=== PATIENT | male | born 1980 | race Two or more races ===

== ENCOUNTER 2023-03-13 03:38 | Emergency (ER) | payer MEDICAID, OTHER ==
[2023-03-13] MEDS ORDERED: Sodium Chloride 0.9% 1,000 ML IV ONE (04:13)
[2023-03-13] MEDS ORDERED: Sodium Chloride 0.9% 1,000 ML IV SCH (04:15)
[2023-03-13 05:10] LABS: HEMOGLOBIN A1C 11.5 %
[2023-03-13] MEDS ORDERED: Labetalol 100 MG/20 ML MDV IVPUSH ONE (05:36)
[2023-03-13] MEDS ORDERED: metFORMIN 500 MG Tab PO ONE (06:03)
[2023-03-13] MEDS ORDERED: Lisinopril 10 MG Tab PO ONE (06:04)
== END 2023-03-13 07:28 | disposition home or self-care (01) ==
LOC: JD.ED 03:38
DX: E11.65 Type 2 diabetes mellitus with hyperglycemia (principal); I10 Essential (primary) hypertension; Z79.84 Long term (current) use of oral hypoglycemic drugs; Z79.899 Other long term (current) drug therapy
CPT/HCPCS: 36415; 36600; 80053; 81001; 82009; 82803; 82947; 83036; 83735; 83930; 85025; 85610; 86341; 96361; 96374; 99284; A9270; J3490; J7030

== ENCOUNTER 2023-08-20 14:13 | Emergency (ER) | payer MEDICAID | END 2023-08-20 15:33 | disposition home or self-care (01) | LOC: JD.ED 14:13 | DX: U07.1 COVID-19 (principal); I10 Essential (primary) hypertension; J45.909 Unspecified asthma, uncomplicated; E11.9 Type 2 diabetes mellitus without complications; Z86.16 Personal history of COVID-19; Z79.84 Long term (current) use of oral hypoglycemic drugs | CPT/HCPCS: 99283 ==

== ENCOUNTER 2023-08-24 17:04 | Inpatient (IN) | payer MEDICAID ==
[2023-08-24] MEDS ORDERED: Sodium Chloride 0.9% 10 ML Syringe FLUSH PRN ×2 (17:27→19:18)
[2023-08-24] MEDS ORDERED: cefTRIAXone 2 GM in Sodium Chloride 0.9% 100 ML IV ONE (17:28)
[2023-08-24 17:55] LABS: BASOPHILS PERCENT AUTO 0.3 % (0.0-1.0); EOSINOPHILS PERCENT AUTO 0.1 % (0.0-6.0); IMMATURE GRAN ABSOLUTE AUTO 0.12 K/mm3 (0.00-0.05); IMMATURE GRAN PERCENT AUTO 0.8 % (0.0-0.4); LYMPHOCYTES ABSOLUTE AUTO 1.2 K/mm3 (1.0-4.8); LYMPHOCYTES PERCENT AUTO 8.5 % (24.0-44.0); MEAN CORPUSCULAR HEMOGLOBIN 23.1 pg (28.0-32.0); MEAN CORPUSCULAR HGB CONC 32.5 g/dl (32.0-36.0); MEAN CORPUSCULAR VOLUME 71.2 fl (83.0-99.0); MEAN PLATELET VOLUME 9.2 fl (9.4-12.4); MONOCYTES ABSOLUTE AUTO 1.1 K/mm3 (0.0-0.8); MONOCYTES PERCENT AUTO 7.3 % (0.0-8.0); NEUTROPHILS ABSOLUTE AUTO 11.9 K/mm3 (1.8-7.7); PLATELET COUNT,PLT 320 K/mm3 (150-400); RED BLOOD CELL COUNT 5.62 M/mm3 (4.52-5.90); WHITE BLOOD CELL COUNT,WBC 14.29 K/mm3 (3.9-11.3)
[2023-08-24 18:20] LABS: A/G RATIO 0.7 (1-2); ALBUMIN 3.2 g/dl (3.4-5.0); ANION GAP 20.8 (5-15); BILIRUBIN TOTAL 0.6 mg/dL (0.2-1.0); BUN/CREATININE RATIO 21.3 (14-18); CALCIUM 9.3 mg/dL (8.5-10.1); CREATININE 0.8 mg/dL (0.7-1.3); EST CRCL DRUG DOSING (CG) 112.81 mL/min; POTASSIUM,K 3.8 mEq/L (3.5-5.1); PROTEIN TOTAL,TP 8.1 g/dl (6.4-8.2)
[2023-08-24] MEDS ORDERED: Piperacillin/Tazobactam 4.5 GM in Sodium Chloride 0.9% 100 ML IV ONE (18:36)
[2023-08-24] MEDS ORDERED: Ondansetron 4 MG/2 ML SDV IV PRN (19:18)
[2023-08-24] MEDS ORDERED: Docusate Sodium 100 MG Cap PO PRN (19:18)
[2023-08-24] MEDS ORDERED: Ondansetron 4 MG Tab.DIS PO PRN (19:18)
[2023-08-24] MEDS ORDERED: Acetaminophen 325 MG Tab PO PRN (19:18)
[2023-08-24] MEDS ORDERED: Piperacillin/Tazobactam 4.5 GM in Sodium Chloride 0.9% 100 ML IV SCH (19:30)
[2023-08-24] MEDS ORDERED: VANCOmycin 1.75 GM/350 ML 1.75 GM in Premix Bag 1 BAG IV ONE (20:00)
[2023-08-24 20:08] LABS: HEMOGLOBIN A1C 13.2 %
[2023-08-24] MEDS: Insulin Lispro 100 Unit/ML 3 ML KwikPen SUBCUT SCH (22:35)
[2023-08-25] MEDS: Piperacillin/Tazobactam 4.5 GM in Sodium Chloride 0.9% 100 ML IV SCH ×3 (00:15→18:37)
[2023-08-25 05:35] LABS: BASOPHILS PERCENT AUTO 0.3 % (0.0-1.0); EOSINOPHILS ABSOLUTE AUTO 0.1 K/mm3 (0.0-0.4); EOSINOPHILS PERCENT AUTO 1.1 % (0.0-6.0); HEMATOCRIT 35.6 % (42.0-52.0); HEMOGLOBIN 11.7 gm/dl (14.0-18.0); IMMATURE GRAN PERCENT AUTO 0.8 % (0.0-0.4); LYMPHOCYTES ABSOLUTE AUTO 2.1 K/mm3 (1.0-4.8); MEAN CORPUSCULAR HGB CONC 32.9 g/dl (32.0-36.0); MEAN CORPUSCULAR VOLUME 69.9 fl (83.0-99.0); MEAN PLATELET VOLUME 9.4 fl (9.4-12.4); MONOCYTES ABSOLUTE AUTO 1.3 K/mm3 (0.0-0.8); MONOCYTES PERCENT AUTO 10.2 % (0.0-8.0); NEUTROPHILS ABSOLUTE AUTO 9.4 K/mm3 (1.8-7.7); NEUTROPHILS PERCENT AUTO 71.6 % (41.0-71.0); PLATELET COUNT,PLT 324 K/mm3 (150-400); RED BLOOD CELL COUNT 5.09 M/mm3 (4.52-5.90); WHITE BLOOD CELL COUNT,WBC 13.16 K/mm3 (3.9-11.3)
[2023-08-25 05:53] LABS: ANION GAP 13.5 (5-15); BUN/CREATININE RATIO 24.3 (14-18); CALCIUM 8.6 mg/dL (8.5-10.1); CREATININE 0.7 mg/dL (0.7-1.3); EST CRCL DRUG DOSING (CG) 128.93 mL/min; POTASSIUM,K 3.5 mEq/L (3.5-5.1)
[2023-08-25 06:10] LABS: SLIDE REVIEW ABNORMAL SMEAR
[2023-08-25] MEDS: Insulin Lispro 100 Unit/ML 3 ML KwikPen SUBCUT SCH ×4 (08:16→21:16)
[2023-08-25] MEDS: Lisinopril 20 MG Tab PO SCH (09:28)
[2023-08-25] MEDS: amLODIPine 10 MG Tab PO SCH (09:29)
[2023-08-25] MEDS ORDERED: VANCOmycin 1.25 GM/250 ML 1.25 GM in Premix Bag 1 BAG IV SCH ×2 (10:00→11:00)
[2023-08-25] MEDS ORDERED: Lactated Ringers 1,000 ML IV SCH ×2 (12:00→16:00)
[2023-08-25] MEDS: VANCOmycin 1.5 GM/300 ML 1.5 GM in Premix Bag 1 BAG IV SCH ×2 (12:14→21:13)
[2023-08-25] MEDS ORDERED: Bupivacaine 0.5% 30 ML SDV ONE (15:54)
[2023-08-25] MEDS ORDERED: Albuterol 0.083% 2.5 MG/3 ML Neb Soln NEB ONE (16:00)
[2023-08-25] MEDS ORDERED: Lidocaine 1% 5 ML VIAL ONE (16:16)
[2023-08-25] MEDS ORDERED: Propofol 200 MG/20 ML SDV ONE (16:16)
[2023-08-25] MEDS ORDERED: Midazolam 1 MG/ML 2 ML SDV ONE (16:17)
[2023-08-25] MEDS ORDERED: fentaNYL 100 MCG/2 ML SDV ONE (16:17)
[2023-08-25] MEDS ORDERED: Lactated Ringers 1,000 ML ONE (16:45)
[2023-08-25] MEDS ORDERED: fentaNYL 100 MCG/2 ML SDV IVPUSH PRN (16:51)
[2023-08-25] MEDS ORDERED: HYDROmorphone 0.5 MG/0.5 ML Syringe IVPUSH PRN (16:51)
[2023-08-25] MEDS ORDERED: Ondansetron 4 MG/2 ML SDV IVPUSH PRN (16:51)
[2023-08-25] MEDS ORDERED: Ketorolac 30 MG/ML SDV ONE (17:24)
[2023-08-25] MEDS ORDERED: Naloxone 0.4 MG/ML SDV IVPUSH PRN (17:43)
[2023-08-25] MEDS ORDERED: Ketorolac 30 MG/ML SDV IVPUSH SCH (17:45)
[2023-08-25] MEDS: Morphine 2 MG/ML SYRINGE IVPUSH SCH ×2 (19:23→21:58)
[2023-08-25] MEDS ORDERED: Morphine 2 MG/ML SYRINGE IVPUSH PRN ×2 (19:53→19:55)
[2023-08-25] MEDS: Insulin Glargine,Human Rec. Analog 100 Units/ML 3 ML Pen SUBCUT SCH (21:17)
[2023-08-26] MEDS: Piperacillin/Tazobactam 4.5 GM in Sodium Chloride 0.9% 100 ML IV SCH ×3 (00:10→16:51)
[2023-08-26] MEDS: Ketorolac 30 MG/ML SDV IVPUSH SCH ×3 (00:11→16:52)
[2023-08-26] MEDS: VANCOmycin 1.5 GM/300 ML 1.5 GM in Premix Bag 1 BAG IV SCH ×2 (04:07→12:14)
[2023-08-26 06:52] LABS: BASOPHILS PERCENT AUTO 0.3 % (0.0-1.0); EOSINOPHILS ABSOLUTE AUTO 0.2 K/mm3 (0.0-0.4); EOSINOPHILS PERCENT AUTO 1.6 % (0.0-6.0); HEMATOCRIT 35.3 % (42.0-52.0); HEMOGLOBIN 11.6 gm/dl (14.0-18.0); IMMATURE GRAN ABSOLUTE AUTO 0.07 K/mm3 (0.00-0.05); IMMATURE GRAN PERCENT AUTO 0.7 % (0.0-0.4); LYMPHOCYTES ABSOLUTE AUTO 1.7 K/mm3 (1.0-4.8); LYMPHOCYTES PERCENT AUTO 16.6 % (24.0-44.0); MEAN CORPUSCULAR HEMOGLOBIN 23.3 pg (28.0-32.0); MEAN CORPUSCULAR HGB CONC 32.9 g/dl (32.0-36.0); MEAN CORPUSCULAR VOLUME 70.9 fl (83.0-99.0); MONOCYTES ABSOLUTE AUTO 1.1 K/mm3 (0.0-0.8); MONOCYTES PERCENT AUTO 10.6 % (0.0-8.0); NEUTROPHILS ABSOLUTE AUTO 7.3 K/mm3 (1.8-7.7); NEUTROPHILS PERCENT AUTO 70.2 % (41.0-71.0); PLATELET COUNT,PLT 330 K/mm3 (150-400); RED BLOOD CELL COUNT 4.98 M/mm3 (4.52-5.90); WHITE BLOOD CELL COUNT,WBC 10.41 K/mm3 (3.9-11.3)
[2023-08-26 07:38] LABS: ANION GAP 12.4 (5-15); CALCIUM 8.8 mg/dL (8.5-10.1); CREATININE 0.5 mg/dL (0.7-1.3); EST CRCL DRUG DOSING (CG) 180.5 mL/min; POTASSIUM,K 3.4 mEq/L (3.5-5.1)
[2023-08-26] MEDS: Insulin Lispro 100 Unit/ML 3 ML KwikPen SUBCUT SCH ×4 (08:27→21:05)
[2023-08-26] MEDS: amLODIPine 10 MG Tab PO SCH (08:28)
[2023-08-26] MEDS: Lisinopril 20 MG Tab PO SCH (08:29)
[2023-08-26] MEDS: VANCOmycin 2 GM/400 ML 2 GM in Premix Bag 1 BAG IV SCH (20:58)
[2023-08-26] MEDS: Insulin Glargine,Human Rec. Analog 100 Units/ML 3 ML Pen SUBCUT SCH (21:04)
[2023-08-27] MEDS: Piperacillin/Tazobactam 4.5 GM in Sodium Chloride 0.9% 100 ML IV SCH ×3 (00:38→16:40)
[2023-08-27] MEDS: Ketorolac 30 MG/ML SDV IVPUSH SCH ×3 (00:38→16:40)
[2023-08-27] MEDS: VANCOmycin 2 GM/400 ML 2 GM in Premix Bag 1 BAG IV SCH ×3 (04:49→20:37)
[2023-08-27] MEDS: Insulin Lispro 100 Unit/ML 3 ML KwikPen SUBCUT SCH ×4 (08:07→20:53)
[2023-08-27] MEDS: amLODIPine 10 MG Tab PO SCH (08:17)
[2023-08-27] MEDS: Lisinopril 20 MG Tab PO SCH (08:18)
[2023-08-27] MEDS: Insulin Glargine,Human Rec. Analog 100 Units/ML 3 ML Pen SUBCUT SCH (20:53)
[2023-08-28] MEDS: Ketorolac 30 MG/ML SDV IVPUSH SCH ×2 (00:38→08:23)
[2023-08-28] MEDS: Piperacillin/Tazobactam 4.5 GM in Sodium Chloride 0.9% 100 ML IV SCH ×4 (00:38→23:05)
[2023-08-28] MEDS: VANCOmycin 2 GM/400 ML 2 GM in Premix Bag 1 BAG IV SCH ×3 (04:29→20:58)
[2023-08-28] MEDS: Insulin Lispro 100 Unit/ML 3 ML KwikPen SUBCUT SCH ×4 (08:19→21:33)
[2023-08-28] MEDS: Lisinopril 20 MG Tab PO SCH (08:22)
[2023-08-28] MEDS: amLODIPine 10 MG Tab PO SCH (08:22)
[2023-08-28 10:04] LABS: HEMATOCRIT 35.7 % (42.0-52.0); HEMOGLOBIN 11.6 gm/dl (14.0-18.0); MEAN CORPUSCULAR HEMOGLOBIN 23.2 pg (28.0-32.0); MEAN CORPUSCULAR HGB CONC 32.5 g/dl (32.0-36.0); MEAN CORPUSCULAR VOLUME 71.5 fl (83.0-99.0); MEAN PLATELET VOLUME 8.7 fl (9.4-12.4); PLATELET COUNT,PLT 401 K/mm3 (150-400); RED BLOOD CELL COUNT 4.99 M/mm3 (4.52-5.90); WHITE BLOOD CELL COUNT,WBC 8.55 K/mm3 (3.9-11.3)
[2023-08-28 10:22] LABS: BUN/CREATININE RATIO 17.1 (14-18); CALCIUM 9.2 mg/dL (8.5-10.1); CREATININE 0.7 mg/dL (0.7-1.3); EST CRCL DRUG DOSING (CG) 128.93 mL/min
[2023-08-28] MEDS ORDERED: Insulin Glargine,Human Rec. Analog 100 Units/ML 3 ML Pen SUBCUT SCH (21:00)
[2023-08-28] MEDS: Insulin Glargine,Human Rec. Analog 100 Units/ML 3 ML Pen SUBCUT SCH (21:34)
[2023-08-28] MEDS: Ketorolac 30 MG/ML SDV IVPUSH PRN (22:55)
[2023-08-29] MEDS: VANCOmycin 2 GM/400 ML 2 GM in Premix Bag 1 BAG IV SCH ×3 (04:54→21:17)
[2023-08-29 08:32] LABS: HEMATOCRIT 39.5 % (42.0-52.0); HEMOGLOBIN 12.5 gm/dl (14.0-18.0); MEAN CORPUSCULAR HEMOGLOBIN 22.7 pg (28.0-32.0); MEAN CORPUSCULAR HGB CONC 31.6 g/dl (32.0-36.0); MEAN CORPUSCULAR VOLUME 71.7 fl (83.0-99.0); MEAN PLATELET VOLUME 8.6 fl (9.4-12.4); PLATELET COUNT,PLT 467 K/mm3 (150-400); RED BLOOD CELL COUNT 5.51 M/mm3 (4.52-5.90); WHITE BLOOD CELL COUNT,WBC 9.02 K/mm3 (3.9-11.3)
[2023-08-29] MEDS: Piperacillin/Tazobactam 4.5 GM in Sodium Chloride 0.9% 100 ML IV SCH ×2 (08:32→15:52)
[2023-08-29] MEDS: Lisinopril 20 MG Tab PO SCH (08:33)
[2023-08-29] MEDS: amLODIPine 10 MG Tab PO SCH (08:33)
[2023-08-29] MEDS: Insulin Lispro 100 Unit/ML 3 ML KwikPen SUBCUT SCH ×4 (08:43→21:30)
[2023-08-29 08:49] LABS: ANION GAP 13.3 (5-15); CALCIUM 9.7 mg/dL (8.5-10.1); CREATININE 0.6 mg/dL (0.7-1.3); EST CRCL DRUG DOSING (CG) 150.42 mL/min; POTASSIUM,K 4.3 mEq/L (3.5-5.1)
[2023-08-29] MEDS: Ketorolac 30 MG/ML SDV IVPUSH PRN ×2 (09:00→21:30)
[2023-08-29] MEDS: Insulin Glargine,Human Rec. Analog 100 Units/ML 3 ML Pen SUBCUT SCH (21:26)
[2023-08-30] MEDS: Piperacillin/Tazobactam 4.5 GM in Sodium Chloride 0.9% 100 ML IV SCH ×2 (00:32→08:09)
[2023-08-30] MEDS: VANCOmycin 2 GM/400 ML 2 GM in Premix Bag 1 BAG IV SCH (04:46)
[2023-08-30] MEDS: Lisinopril 20 MG Tab PO SCH (08:11)
[2023-08-30] MEDS: amLODIPine 10 MG Tab PO SCH (08:11)
[2023-08-30] MEDS: Insulin Lispro 100 Unit/ML 3 ML KwikPen SUBCUT SCH ×2 (08:11→11:52)
[2023-08-30] MEDS: Ketorolac 30 MG/ML SDV IVPUSH PRN (08:12)
[2023-08-30] MEDS ORDERED: Amoxicillin/Clavulanate K 875-125 MG Tab PO SCH (09:00)
== END 2023-08-30 16:00 | disposition home or self-care (01) | DRG 872 ==
LOC: JD.ED 17:04 → JD.MS 19:18
PROVIDERS: ADMIT Hospitalist; ATTEND Hospitalist
DX: A41.9 Sepsis, unspecified organism (principal); L03.115 Cellulitis of right lower limb; L02.611 Cutaneous abscess of right foot; I10 Essential (primary) hypertension; J45.909 Unspecified asthma, uncomplicated; F41.9 Anxiety disorder, unspecified; D64.9 Anemia, unspecified; F17.210 Nicotine dependence, cigarettes, uncomplicated; E11.65 Type 2 diabetes mellitus with hyperglycemia; Z91.148 Patient's other noncompliance with medication regimen for other reason; Z79.899 Other long term (current) drug therapy; Z79.4 Long term (current) use of insulin
CPT/HCPCS: 00400; 36415; 73630-26-RT; 73630-RT; 80048; 80053; 80202; 82947; 83036; 83605; 85025; 85027; 87040; 87070; 87075; 87077; 87205; 94640; 96365; 96367; 99140; 99222; 99231; 99232; 99239; 99284-25; 99285; A9270-GY; J0696; J1815; J1815-GY; J1885; J2250; J2543; J2704; J3010; J3370; J3490; J7120; J7620-GY

== ENCOUNTER 2023-09-11 04:45 | Emergency (ER) | payer MEDICAID ==
[2023-09-11 05:35] LABS: BASOPHILS ABSOLUTE AUTO 0.1 K/mm3 (0.0-0.2); BASOPHILS PERCENT AUTO 0.7 % (0.0-1.0); EOSINOPHILS ABSOLUTE AUTO 0.1 K/mm3 (0.0-0.4); EOSINOPHILS PERCENT AUTO 0.7 % (0.0-6.0); HEMATOCRIT 37.9 % (42.0-52.0); HEMOGLOBIN 12.3 gm/dl (14.0-18.0); IMMATURE GRAN ABSOLUTE AUTO 0.03 K/mm3 (0.00-0.05); IMMATURE GRAN PERCENT AUTO 0.4 % (0.0-0.4); LYMPHOCYTES ABSOLUTE AUTO 1.3 K/mm3 (1.0-4.8); LYMPHOCYTES PERCENT AUTO 18.1 % (24.0-44.0); MEAN CORPUSCULAR HEMOGLOBIN 22.7 pg (28.0-32.0); MEAN CORPUSCULAR HGB CONC 32.5 g/dl (32.0-36.0); MEAN CORPUSCULAR VOLUME 69.9 fl (83.0-99.0); MONOCYTES ABSOLUTE AUTO 0.7 K/mm3 (0.0-0.8); MONOCYTES PERCENT AUTO 9.1 % (0.0-8.0); NEUTROPHILS ABSOLUTE AUTO 5.1 K/mm3 (1.8-7.7); PLATELET COUNT,PLT 368 K/mm3 (150-400); RED BLOOD CELL COUNT 5.42 M/mm3 (4.52-5.90); WHITE BLOOD CELL COUNT,WBC 7.22 K/mm3 (3.9-11.3)
[2023-09-11 05:54] LABS: A/G RATIO 0.8 (1-2); ALBUMIN 3.5 g/dl (3.4-5.0); ANION GAP 15.4 (5-15); BILIRUBIN TOTAL 0.3 mg/dL (0.2-1.0); BUN/CREATININE RATIO 27.1 (14-18); CALCIUM 9.2 mg/dL (8.5-10.1); CREATININE 0.7 mg/dL (0.7-1.3); EST CRCL DRUG DOSING (CG) 133.26 mL/min; POTASSIUM,K 3.4 mEq/L (3.5-5.1); PROTEIN TOTAL,TP 7.7 g/dl (6.4-8.2)
[2023-09-11 06:52] LABS: SLIDE REVIEW ABNORMAL SMEAR
== END 2023-09-11 06:35 | disposition home or self-care (01) ==
LOC: JD.ED 04:45
DX: T81.49XA Infection following a procedure, other surgical site, initial encounter (principal); S91.301A Unspecified open wound, right foot, initial encounter; E11.65 Type 2 diabetes mellitus with hyperglycemia; I10 Essential (primary) hypertension; E11.9 Type 2 diabetes mellitus without complications; Z86.16 Personal history of COVID-19; Z98.890 Other specified postprocedural states; Z79.84 Long term (current) use of oral hypoglycemic drugs; Z79.4 Long term (current) use of insulin; Z79.899 Other long term (current) drug therapy; Y83.8 Other surgical procedures as the cause of abnormal reaction of the patient, or of later complication, without mention of misadventure at the time of the procedure
CPT/HCPCS: 36415; 80053; 83605; 85025; 99283; 99284

== ENCOUNTER 2023-09-27 13:00 | Emergency (ER) | payer MEDICAID | END 2023-09-27 17:02 | disposition home or self-care (01) | LOC: JD.ED 13:00 | DX: S29.9XXA Unspecified injury of thorax, initial encounter (principal); I10 Essential (primary) hypertension; J45.909 Unspecified asthma, uncomplicated; E11.9 Type 2 diabetes mellitus without complications; Z86.16 Personal history of COVID-19; Z79.4 Long term (current) use of insulin; Z79.899 Other long term (current) drug therapy; W18.30XA Fall on same level, unspecified, initial encounter | CPT/HCPCS: 71046; 71046-26; 99284 ==